=== PATIENT | female | born 1980 | race American Indian/Alaskan Native ===

== ENCOUNTER 2017-05-25 15:05 | Emergency (ER) | payer BC ==
[2017-05-25 15:21] VITALS: BP 126/69
--- NOTE | 2017-05-25 19:29 | XRay Report ---
FINAL REPORT PROCEDURE: XR KNEE 3V RT TECHNIQUE: RIGHT knee radiographs, AP, lateral and oblique views. CPT 99986 HISTORY: right knee xray COMPARISON: No prior studies are available for comparison. FINDINGS: Fracture (s) and/or Dislocation(s): None . Alignment: Normal . Joint space(s): Mild degree joint effusion is noted.. Soft tissues: Normal . Bone mineralization: Normal . Foreign bodies: None . IMPRESSION: No acute fracture. Mild degree joint effusion..
[2017-05-25] MEDS ORDERED: MOTRIN PO ONE (19:36)
[2017-05-25] MEDS ORDERED: TYLENOL #3 PO ONE (19:36)
--- NOTE | 2017-05-25 19:37 | Emergency Department Report ---
ED Lower Extremity HPI - General Chief Complaint: Extremity Injury, Lower Stated Complaint: R KNEE PAIN Time Seen by Provider: 05/25/17 19:22 Source: patient, RN notes reviewed Mode of arrival: Ambulatory Limitations: No Limitations - History of Present Illness Initial Comments: This is a 36-year-old female who is previously known to this provider, she reports that she is not . Patient reports that she has to do a lot of standing for work. She reports no chronic medical conditions. Patient presents to the ER with 1 day of nontraumatic right medial knee pain. The pain is sharp, does not radiate anywhere, increases with palpation, range of motion, standing, and decreases with rest. No headache, neck pain, chest pain, abdominal pain, shortness of breath or Pain. MD Complaint: knee injury -: Gradual Injury: Knee: Right Type of Injury: unknown Place: home Severity: moderate Improves With: rest Worsens With: weight bearing, movement, palpation Associated Symptoms: able to partially bear weight. denies: snap/pop sensation , swelling, numbness, tingling - Related Data Previous Rx's Medication Instructions Recorded Last Taken Type HYDROcodone/ACETAMINOPHEN [Lortab 1 each PO Q6H #10 tablet 12/05/13 Unknown Rx 5-325 mg Tablet] Mupirocin [Bactroban 2%] 1 applicatio TP TID #15 gram 12/05/13 Unknown Rx Sulfamethoxazole/Trimethoprim 1 each PO BID #20 tablet 12/05/13 Unknown Rx [Bactrim Ds] Ciprofloxacin HCl [Ciprofloxacin 500 mg PO BID #10 tablet 03/21/16 Unknown Rx TAB] Ibuprofen [Motrin] 800 mg PO Q8HR PRN #20 tablet 03/21/16 Unknown Rx Acetaminophen [Tylenol Arthritis] 650 mg PO Q6HR PRN #30 tablet.er 05/25/17 Unknown Rx Ibuprofen [Motrin] 600 mg PO Q8H PRN #30 tablet 05/25/17 Unknown Rx Allergies Allergy/AdvReac Type Severity Reaction Status Date / Time No Known Allergies Allergy Unverified 12/05/13 19:15 ED Review of Systems ROS: Stated complaint: R KNEE PAIN Other details as noted in HPI ED Past Medical Hx - Past Medical History Previous Medical History?: Yes Additional medical history: Vaginal dleivery x 2 - Surgical History Past Surgical History?: Yes Additional Surgical History: FIBROIDS REMOVED - Social History Smoking Status: Current Every Day Smoker Substance Use Type: Non Opiate Pain - Medications Home Medications: Home Medications Medication Instructions Recorded Confirmed Last Taken Type HYDROcodone/ACETAMINOPHEN [Lortab 1 each PO Q6H #10 tablet 12/05/13 Unknown Rx 5-325 mg Tablet] Mupirocin [Bactroban 2%] 1 applicatio TP TID #15 gram 12/05/13 Unknown Rx Sulfamethoxazole/Trimethoprim 1 each PO BID #20 tablet 12/05/13 Unknown Rx [Bactrim Ds] Ciprofloxacin HCl [Ciprofloxacin 500 mg PO BID #10 tablet 03/21/16 Unknown Rx TAB] Ibuprofen [Motrin] 800 mg PO Q8HR PRN #20 tablet 03/21/16 Unknown Rx Acetaminophen [Tylenol Arthritis] 650 mg PO Q6HR PRN #30 tablet.er 05/25/17 Unknown Rx Ibuprofen [Motrin] 600 mg PO Q8H PRN #30 tablet 05/25/17 Unknown Rx ED Physical Exam - General Limitations: Physical Limitation General appearance: alert, in no apparent distress - Head Head exam: Present: atraumatic, normocephalic - Eye Eye exam: Present: normal appearance, EOMI. Absent: nystagmus - ENT ENT exam: Present: normal exam, normal orophraynx, mucous membranes moist, normal external ear exam - Neck Neck exam: Present: normal inspection, full ROM - Respiratory Respiratory exam: Present: normal lung sounds bilaterally. Absent: respiratory distress - Cardiovascular Cardiovascular Exam: Present: regular rate, normal rhythm, normal heart sounds. Absent: systolic murmur, diastolic murmur, rubs, gallop - GI/Abdominal GI/Abdominal exam: Present: soft, normal bowel sounds. Absent: distended, tenderness, guarding, rebound, rigid, pulsatile mass - Extremities Exam Extremities exam: Present: normal inspection, normal capillary refill, other (2 + pulses noted in the bilateral upper extremities. The compartments are soft. There is no redness, pus or streaking. The right medial joint line of the knee is tender. The medial aspect of the patella is tender. 5 out of 5 strength bilateral upper and lower extremities. Sensation intact to light touch in the bilateral upper and lower extremities. There is no pain with active or passive range of motion of the bilateral lower extremities with dorsi and/or plantar flexion.). Absent: pedal edema, joint swelling, calf tenderness - Back Exam Back exam: Present: normal inspection, full ROM. Absent: paraspinal tenderness , vertebral tenderness - Neurological Exam Neurological exam: Present: alert, oriented X3, CN II-XII intact, other ( Extraocular movements intact. Tongue midline. No facial droop. Facial sensation intact to light touch in the V1, V2, V3 distribution bilaterally. 5 and 5 strength in 4 extremities.. Sensation is intact to light touch in 4 extremities.). Absent: motor sensory deficit - Psychiatric Psychiatric exam: Present: normal affect, normal mood - Skin Skin exam: Present: warm, dry, intact, normal color. Absent: rash ED Course Vital Signs 05/25/17 15:17 Temperature 97.8 F Pulse Rate 90 Respiratory 16 Rate Blood Pressure 126/69 O2 Sat by Pulse 98 Oximetry ED Lower Extremity MDM - Lab Data Vital Signs 05/25/17 15:17 Temperature 97.8 F Pulse Rate 90 Respiratory 16 Rate Blood Pressure 126/69 O2 Sat by Pulse 98 Oximetry - Radiology Data Radiology results: report reviewed, image reviewed X-ray of the knee, interpreted by myself and radiology: No acute disease - Medical Decision Making Differential diagnosis, including when not limited to: Sprain, strain, fracture , dislocation, patella femoral syndrome Assessment and plan: 36-year-old female with reported spontaneous nontraumatic right medial knee pain. History, physical examination do not suggest diagnosis of fracture, dislocation , cellulitis, myositis, septic joint, or DVT. Most likely has myofascial strain , or patellofemoral syndrome. Weightbearing as tolerated, bulky Herrmann dressing ordered, patient will be referred to outpatient orthopedic/physical therapy. Return precautions are reviewed. Critical care attestation.: If time is entered above; I have spent that time in minutes in the direct care of this critically ill patient, excluding procedure time. ED Disposition Clinical Impression: Right knee pain Disposition: DC-01 TO HOME OR SELFCARE Is pt being admited?: No Does the pt Need Aspirin: No Condition: Stable Instructions: Patellofemoral Pain Syndrome (ED), Knee Exercises (GEN) Additional Instructions: Breast, and avoid heavy lifting. Avoid strenuous physical activities. Take pain medication as needed/directed. Follow up within the next week with either orthopedics or primary care to initiate outpatient physical therapy. Symptoms will likely take weeks to months to improve. Return to the ER right away with new pain, worsened pain, migration of pain, fevers, chills, lethargy, irritability, projectile vomiting, change in mental status, confusion, inability to tolerate liquid feeds, redness, pus, streaking, discharge from the affected joint. Referrals: MARCK ARREOLA MD [Primary Care Provider] - 3-5 Days NADIA BERNABE MD [Staff Physician] - 3-5 Days Forms: Work/School Release Form(ED)
== END 2017-05-25 20:15 | disposition home or self-care (01) ==
LOC: ED 15:05
DX: M25.561 Pain in right knee (principal); F17.200 Nicotine dependence, unspecified, uncomplicated; X58.XXXA Exposure to other specified factors, initial encounter; Y93.89 Activity, other specified; Y92.89 Other specified places as the place of occurrence of the external cause; Y99.8 Other external cause status

== ENCOUNTER 2018-07-10 13:59 | Emergency (ER) | payer BC, OTHER ==
[2018-07-10 15:25] VITALS: BP 132/66
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
[2018-07-10] MEDS ORDERED: IBUPROFEN PO ONE (17:24)
[2018-07-10] MEDS ORDERED: ULTRAM PO ONE (17:24)
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
--- NOTE | 2018-07-10 17:42 | XRay Report ---
PROCEDURE: Cervical spine. TECHNIQUE: 4 views. HISTORY: Posterior neck pain. COMPARISONS: None. FINDINGS: The cervical vertebrae are normal height and alignment. There are no fractures. There is no subluxati on. There is moderate disc space narrowing at C4-5. The prevertebral soft tissues have normal thickne ss. IMPRESSION: Degenerative disc disease at C4-5. This document is electronically signed by Titi Becerra MD., July 10 2018 05:40:11 PM ET
--- NOTE | 2018-07-10 17:44 | XRay Report ---
PROCEDURE: Lumbar spine. TECHNIQUE: AP and lateral views. HISTORY: Low back pain. COMPARISONS: None. FINDINGS: The lumbar vertebrae have normal height and alignment. There are no fractures. There is no spondyloli sthesis. L5 is a transitional type vertebrae with partial fusion to the sacrum. The disc spaces are w ell-maintained. The sacrum and sacroiliac joints appear normal. IMPRESSION: No significant abnormality. This document is electronically signed by Titi Becerra MD., July 10 2018 05:42:26 PM ET
== END 2018-07-10 18:23 | disposition home or self-care (01) ==
LOC: ED 13:59
DX: S39.012A Strain of muscle, fascia and tendon of lower back, initial encounter (principal); R51 Headache; M25.511 Pain in right shoulder; M54.2 Cervicalgia; V49.49XA Driver injured in collision with other motor vehicles in traffic accident, initial encounter; Y93.89 Activity, other specified; Y92.410 Unspecified street and highway as the place of occurrence of the external cause; Y99.8 Other external cause status
CPT/HCPCS: 72040; 72100

== ENCOUNTER 2018-08-18 19:39 | Emergency (ER) | payer OTHER ==
--- NOTE | 2018-08-18 20:00 | Emergency Department Report ---
Chief Complaint: Sore Throat Stated Complaint: Sorethroat - HPI History of Present Illness: Here with a list of complaints sore throat chest pain feet swelling pmh obese psh fibroids rx none no cig/etoh/drugs lmp 2 w ago mom and dad a/w mse completed MSE screening note: Focused history and physical exam performed. Due to findings the following was ordered: ED Disposition for MSE Condition: Stable
[2018-08-18 20:33] LABS: Hematocrit 34.8 % (30.3-42.9); Hemoglobin 11.9 gm/dl (10.1-14.3); Mean Corpuscular HGB Conc 34 % (30-34); Mean Corpuscular Volume 80 fl (79-97); Platelet Count 298 K/mm3 (140-440); Red Blood Count 4.35 M/mm3 (3.65-5.03)
[2018-08-18 20:53] LABS: Alanine Aminotransferase 12 units/L (7-56); Albumin 3.3 g/dL (3.9-5); BUN/Creatinine Ratio 14; Blood Urea Nitrogen 13 mg/dL (7-17); Calcium 8.9 mg/dL (8.4-10.2); Hemolysis Index 12
[2018-08-18 21:50] LABS: HCG Qualitative,Urine Negative (Negative)
[2018-08-18 21:57] LABS: Bilirubin,Urine NEG (Negative); Blood,Urine SM (Negative); Color,Urine Yellow (Yellow); Mucus,Urine FEW /HPF; Protein,Urine <15 mg/dL mg/dL (Negative); Urobilinogen,Urine < 2.0 mg/dL (<2.0); WBC,Urine < 1.0 /HPF (0.0-6.0)
[2018-08-18 22:09] VITALS: BP 121/62
--- NOTE | 2018-08-18 22:24 | Emergency Department Report ---
ED ENT HPI - General Chief complaint: Sore Throat Stated complaint: Sorethroat Time Seen by Provider: 08/18/18 20:07 Source: patient Mode of arrival: Ambulatory Limitations: No Limitations - History of Present Illness Initial comments: 38-year-old -Turkish female comes in for runny nose, nasal congestion, sneezing, cough worse at night and headache. This is been going on for 2-3 days. Patient reports burning in her nasal passage. Headache dizziness off and on. -: days(s) (2-3) - Related Data Previous Rx's Medication Instructions Recorded Last Taken Type HYDROcodone/ACETAMINOPHEN [Lortab 1 each PO Q6H #10 tablet 12/05/13 Unknown Rx 5-325 mg Tablet] Mupirocin [Bactroban 2%] 1 applicatio TP TID #15 gram 12/05/13 Unknown Rx Sulfamethoxazole/Trimethoprim 1 each PO BID #20 tablet 12/05/13 Unknown Rx [Bactrim Ds] Ciprofloxacin HCl [Ciprofloxacin 500 mg PO BID #10 tablet 03/21/16 Unknown Rx TAB] Ibuprofen [Motrin] 800 mg PO Q8HR PRN #20 tablet 03/21/16 Unknown Rx Acetaminophen [Tylenol Arthritis] 650 mg PO Q6HR PRN #30 tablet.er 05/25/17 Unknown Rx Ibuprofen [Motrin] 600 mg PO Q8H PRN #30 tablet 05/25/17 Unknown Rx Ibuprofen [Motrin] 800 mg PO Q8HR PRN #30 tablet 07/10/18 Unknown Rx traMADol [Ultram 50 MG tab] 50 mg PO Q6HR PRN #20 tablet 07/10/18 Unknown Rx diphenhydrAMINE [Benadryl CAP] 25 mg PO Q6HR PRN #20 capsule 07/27/18 Unknown Rx predniSONE [Deltasone] 20 mg PO DAILY #5 tablet 07/27/18 Unknown Rx Cetirizine HCl [ZyrTEC] 10 mg PO DAILY #30 capsule 08/18/18 Unknown Rx Fluticasone Furoate [Flonase 1 spray NS QDAY #1 spray.susp 08/18/18 Unknown Rx Sensimist] Naproxen [Naprosyn] 500 mg PO BID #30 tablet 08/18/18 Unknown Rx Allergies Allergy/AdvReac Type Severity Reaction Status Date / Time No Known Allergies Allergy Verified 07/10/18 15:22 ED Dental HPI - General Chief complaint: Sore Throat Stated complaint: Sorethroat Time Seen by Provider: 08/18/18 20:07 Source: patient Mode of arrival: Ambulatory Limitations: No Limitations - Related Data Previous Rx's Medication Instructions Recorded Last Taken Type HYDROcodone/ACETAMINOPHEN [Lortab 1 each PO Q6H #10 tablet 12/05/13 Unknown Rx 5-325 mg Tablet] Mupirocin [Bactroban 2%] 1 applicatio TP TID #15 gram 12/05/13 Unknown Rx Sulfamethoxazole/Trimethoprim 1 each PO BID #20 tablet 12/05/13 Unknown Rx [Bactrim Ds] Ciprofloxacin HCl [Ciprofloxacin 500 mg PO BID #10 tablet 03/21/16 Unknown Rx TAB] Ibuprofen [Motrin] 800 mg PO Q8HR PRN #20 tablet 03/21/16 Unknown Rx Acetaminophen [Tylenol Arthritis] 650 mg PO Q6HR PRN #30 tablet.er 05/25/17 Unknown Rx Ibuprofen [Motrin] 600 mg PO Q8H PRN #30 tablet 05/25/17 Unknown Rx Ibuprofen [Motrin] 800 mg PO Q8HR PRN #30 tablet 07/10/18 Unknown Rx traMADol [Ultram 50 MG tab] 50 mg PO Q6HR PRN #20 tablet 07/10/18 Unknown Rx diphenhydrAMINE [Benadryl CAP] 25 mg PO Q6HR PRN #20 capsule 07/27/18 Unknown Rx predniSONE [Deltasone] 20 mg PO DAILY #5 tablet 07/27/18 Unknown Rx Cetirizine HCl [ZyrTEC] 10 mg PO DAILY #30 capsule 08/18/18 Unknown Rx Fluticasone Furoate [Flonase 1 spray NS QDAY #1 spray.susp 08/18/18 Unknown Rx Sensimist] Naproxen [Naprosyn] 500 mg PO BID #30 tablet 08/18/18 Unknown Rx Allergies Allergy/AdvReac Type Severity Reaction Status Date / Time No Known Allergies Allergy Verified 07/10/18 15:22 ED Review of Systems ROS: Stated complaint: Sorethroat Other details as noted in HPI Constitutional: denies: chills, fever ENT: congestion, other (rhinorrhea, sneezing) Respiratory: cough. denies: shortness of breath, SOB with exertion Cardiovascular: denies: chest pain Gastrointestinal: denies: abdominal pain, nausea, diarrhea ED Past Medical Hx - Past Medical History Previous Medical History?: No Additional medical history: Vaginal dleivery x 2 - Surgical History Past Surgical History?: Yes Additional Surgical History: FIBROIDS REMOVED. laposcopic - Social History Smoking Status: Never Smoker Substance Use Type: None - Medications Home Medications: Home Medications Medication Instructions Recorded Confirmed Last Taken Type HYDROcodone/ACETAMINOPHEN [Lortab 1 each PO Q6H #10 tablet 12/05/13 Unknown Rx 5-325 mg Tablet] Mupirocin [Bactroban 2%] 1 applicatio TP TID #15 gram 12/05/13 Unknown Rx Sulfamethoxazole/Trimethoprim 1 each PO BID #20 tablet 12/05/13 Unknown Rx [Bactrim Ds] Ciprofloxacin HCl [Ciprofloxacin 500 mg PO BID #10 tablet 03/21/16 Unknown Rx TAB] Ibuprofen [Motrin] 800 mg PO Q8HR PRN #20 tablet 03/21/16 Unknown Rx Acetaminophen [Tylenol Arthritis] 650 mg PO Q6HR PRN #30 tablet.er 05/25/17 Unknown Rx Ibuprofen [Motrin] 600 mg PO Q8H PRN #30 tablet 05/25/17 Unknown Rx Ibuprofen [Motrin] 800 mg PO Q8HR PRN #30 tablet 07/10/18 Unknown Rx traMADol [Ultram 50 MG tab] 50 mg PO Q6HR PRN #20 tablet 07/10/18 Unknown Rx diphenhydrAMINE [Benadryl CAP] 25 mg PO Q6HR PRN #20 capsule 07/27/18 Unknown Rx predniSONE [Deltasone] 20 mg PO DAILY #5 tablet 07/27/18 Unknown Rx Cetirizine HCl [ZyrTEC] 10 mg PO DAILY #30 capsule 08/18/18 Unknown Rx Fluticasone Furoate [Flonase 1 spray NS QDAY #1 spray.susp 08/18/18 Unknown Rx Sensimist] Naproxen [Naprosyn] 500 mg PO BID #30 tablet 08/18/18 Unknown Rx ED Physical Exam - General Limitations: No Limitations General appearance: alert, in no apparent distress, obese, other (patient is drinking and eating ice on examination) - Head Head exam: Present: atraumatic, normocephalic - Eye Eye exam: Present: normal appearance - ENT ENT exam: Present: mucous membranes moist - Expanded ENT Exam Expanded Teeth exam: Present: normal inspection. Absent: gingival enlargement Throat exam: Positive: normal inspection - Neck Neck exam: Present: normal inspection, full ROM. Absent: tenderness, lymphadenopathy - Respiratory Respiratory exam: Present: normal lung sounds bilaterally. Absent: respiratory distress - Cardiovascular Cardiovascular Exam: Present: regular rate, normal rhythm. Absent: systolic murmur, diastolic murmur, rubs, gallop - GI/Abdominal GI/Abdominal exam: Present: soft, normal bowel sounds - Extremities Exam Extremities exam: Present: normal inspection - Back Exam Back exam: Present: full ROM - Neurological Exam Neurological exam: Present: alert, oriented X3, normal gait - Psychiatric Psychiatric exam: Present: normal affect, normal mood - Skin Skin exam: Present: warm, dry, intact, normal color. Absent: rash ED Course Vital Signs 08/18/18 08/18/18 19:42 22:05 Temperature 97.4 F L Pulse Rate 104 H 86 Respiratory 16 Rate Blood Pressure 133/61 121/62 [Right] O2 Sat by Pulse 100 97 Oximetry ED Medical Decision Making - Lab Data Result diagrams: 08/18/18 20:15 08/18/18 20:15 Laboratory Results - last 72 hr 08/18/18 08/18/18 08/18/18 20:15 20:15 20:27 WBC 10.5 RBC 4.35 Hgb 11.9 Hct 34.8 MCV 80 MCH 27 L MCHC 34 RDW 17.0 H Plt Count 298 Sodium 141 Potassium 4.1 Chloride 103.9 Carbon Dioxide 27 Anion Gap 14 BUN 13 Creatinine 0.9 Estimated GFR > 60 BUN/Creatinine Ratio 14 Glucose 114 H Calcium 8.9 Total Bilirubin 0.20 AST 14 ALT 12 Alkaline Phosphatase 59 Troponin T < 0.010 Total Protein 5.8 L Albumin 3.3 L Albumin/Globulin Ratio 1.3 Urine Color Yellow Urine Turbidity Clear Urine pH 6.0 Ur Specific [place] 1.010 Urine Protein <15 mg/dl Urine Glucose (UA) Neg Urine Ketones Neg Urine Blood Sm Urine Nitrite Neg Ur Reducing Substances Not Reportable Urine Bilirubin Neg Urine Ictotest Not Reportable Urine Urobilinogen < 2.0 Ur Leukocyte Esterase Neg Urine WBC (Auto) < 1.0 Urine RBC (Auto) 1.0 U Epithel Cells (Auto) 1.0 Urine Mucus Few Urine HCG, Qual Negative - Medical Decision Making Patient has been evaluated by this provider in fast track. Patient appears to have allergic rhinitis. I will place patient on cetirizine, Flonase, naproxen to follow up with her primary care provider if her symptoms persist or gets worse. Critical care attestation.: If time is entered above; I have spent that time in minutes in the direct care of this critically ill patient, excluding procedure time. ED Disposition Clinical Impression: Allergic rhinitis Qualifiers: Allergic rhinitis trigger: pollen Allergic rhinitis seasonality: seasonal Qualified Code(s): J30.1 - Allergic rhinitis due to pollen Disposition: DC-01 TO HOME OR SELFCARE Is pt being admited?: No Does the pt Need Aspirin: No Condition: Stable Instructions: Allergic Rhinitis (ED) Additional Instructions: Take medications as prescribed. Follow-up with primary care provider if his symptoms persist or gets worse. Prescriptions: Fluticasone Furoate [Flonase Sensimist] 1 spray NS QDAY #1 spray.susp Naproxen [Naprosyn] 500 mg PO BID #30 tablet Cetirizine HCl [ZyrTEC] 10 mg PO DAILY #30 capsule Referrals: PRIMARY CARE, [Primary Care Provider] - 3-5 Days Forms: Work/School Release Form(ED), Accompanied Note
--- NOTE | 2018-08-19 00:12 | XRay Report ---
PROCEDURE: XR CHEST ROUTINE 2V TECHNIQUE: PA and lateral views of the chest were obtained. HISTORY: cough COMPARISONS: None FINDINGS: Heart size upper normal. The pulmonary vasculature appears normal. The lungs are clear. No infiltrate s masses or effusions are seen. No acute bone abnormalities are identified. There is mild thoracolumb ar scoliosis convex to the left. IMPRESSION: No evidence of acute cardiac or pulmonary process.. This document is electronically signed by Tavo Duncan MD., August 19 2018 12:10:41 AM ET
== END 2018-08-18 22:30 | disposition home or self-care (01) ==
LOC: ED 19:39
DX: J30.1 Allergic rhinitis due to pollen (principal); Z79.899 Other long term (current) drug therapy
CPT/HCPCS: 36415; 71046; 80053; 81001; 81025; 84484; 85027; 93005; 93010

== ENCOUNTER 2018-11-09 18:43 | Emergency (ER) | payer OTHER ==
--- NOTE | 2018-11-09 19:02 | Event Note ---
ED Screening Note ED Screening Note: pt presents with BL hand and feet edema for 3 weeks no fall, injury, or trauma no primary care doctor LNMP: two days ago PMHx carpal tunnel no allergies to meds This initial assessment/diagnostic orders/clinical plan/treatment(s) is/are subject to change based on patients health status, clinical progression and re- assessment by fellow clinical providers in the ED. Further treatment and workup at subsequent clinical providers discretion. Patient/guardian urged not to elope from the ED as their condition may be serious if not clinically assessed and managed. Initial orders include: labs
[2018-11-09 19:47] LABS: Basophils # (Auto) 0.1 K/mm3 (0.0-0.1); Basophils % (Auto) 0.6 % (0.0-1.8); Eosinophils # (Auto) 0.2 K/mm3 (0.0-0.4); Eosinophils % (Auto) 2.6 % (0.0-4.3); Hematocrit 34.6 % (30.3-42.9); Hemoglobin 11.6 gm/dl (10.1-14.3); Lymphocytes # (Auto) 1.7 K/mm3 (1.2-5.4); Lymphocytes % (Auto) 18.5 % (13.4-35.0); Mean Corpuscular HGB Conc 34 % (30-34); Mean Corpuscular Volume 83 fl (79-97); Monocytes # (Auto) 0.7 K/mm3 (0.0-0.8); Monocytes % (Auto) 7.7 % (0.0-7.3); Platelet Count 301 K/mm3 (140-440); Red Blood Count 4.18 M/mm3 (3.65-5.03); Red Cell Distribution Width 15.8 % (13.2-15.2)
[2018-11-09 20:08] LABS: Alanine Aminotransferase 10 units/L (7-56); Albumin 3.2 g/dL (3.9-5); BUN/Creatinine Ratio 8; Blood Urea Nitrogen 9 mg/dL (7-17); Calcium 8.5 mg/dL (8.4-10.2); Hemolysis Index 13
[2018-11-09] MEDS ORDERED: DECADRON IM ONE ×2 (20:16→20:19)
--- NOTE | 2018-11-09 20:17 | Emergency Department Report ---
ED Extremity Problem HPI - General Chief complaint: Extremity Problem,Nontraumatic Stated complaint: HANDS/FEET SWELLING Time Seen by Provider: 11/09/18 19:01 Source: patient Mode of arrival: Ambulatory Limitations: No Limitations - History of Present Illness Initial comments: 38-year-old -Danish female complaining of hand swelling, pain, lower extremity swelling and pain. Stated history of carpal tunnel, states history of rheumatoid arthritis. No fever, chills or night sweats. MD Complaint: extremity pain, extremity swelling - Related Data Previous Rx's Medication Instructions Recorded Last Taken Type HYDROcodone/ACETAMINOPHEN [Lortab 1 each PO Q6H #10 tablet 12/05/13 Unknown Rx 5-325 mg Tablet] Mupirocin [Bactroban 2%] 1 applicatio TP TID #15 gram 12/05/13 Unknown Rx Sulfamethoxazole/Trimethoprim 1 each PO BID #20 tablet 12/05/13 Unknown Rx [Bactrim Ds] Ciprofloxacin HCl [Ciprofloxacin 500 mg PO BID #10 tablet 03/21/16 Unknown Rx TAB] Ibuprofen [Motrin] 800 mg PO Q8HR PRN #20 tablet 03/21/16 Unknown Rx Acetaminophen [Tylenol Arthritis] 650 mg PO Q6HR PRN #30 tablet.er 05/25/17 Unknown Rx Ibuprofen [Motrin] 600 mg PO Q8H PRN #30 tablet 05/25/17 Unknown Rx Ibuprofen [Motrin] 800 mg PO Q8HR PRN #30 tablet 07/10/18 Unknown Rx traMADol [Ultram 50 MG tab] 50 mg PO Q6HR PRN #20 tablet 07/10/18 Unknown Rx diphenhydrAMINE [Benadryl CAP] 25 mg PO Q6HR PRN #20 capsule 07/27/18 Unknown Rx predniSONE [Deltasone] 20 mg PO DAILY #5 tablet 07/27/18 Unknown Rx Cetirizine HCl [ZyrTEC 10mg cap] 10 mg PO DAILY #30 capsule 08/18/18 Unknown Rx Fluticasone Furoate [Flonase 1 spray NS QDAY #1 spray.susp 08/18/18 Unknown Rx Sensimist] Naproxen [Naprosyn] 500 mg PO BID #30 tablet 08/18/18 Unknown Rx Allergies Allergy/AdvReac Type Severity Reaction Status Date / Time No Known Allergies Allergy Verified 07/10/18 15:22 ED Review of Systems ROS: Stated complaint: HANDS/FEET SWELLING Other details as noted in HPI Comment: All other systems reviewed and negative Cardiovascular: denies: chest pain, palpitations Endocrine: denies: flushing Gastrointestinal: denies: abdominal pain, nausea, vomiting Musculoskeletal: joint swelling, arthralgia ED Past Medical Hx - Past Medical History Previous Medical History?: Yes Additional medical history: Vaginal dleivery x 2. carpel tunnel - Surgical History Past Surgical History?: Yes Additional Surgical History: FIBROIDS REMOVED. laposcopic - Social History Smoking Status: Never Smoker Substance Use Type: None - Medications Home Medications: Home Medications Medication Instructions Recorded Confirmed Last Taken Type HYDROcodone/ACETAMINOPHEN [Lortab 1 each PO Q6H #10 tablet 12/05/13 Unknown Rx 5-325 mg Tablet] Mupirocin [Bactroban 2%] 1 applicatio TP TID #15 gram 12/05/13 Unknown Rx Sulfamethoxazole/Trimethoprim 1 each PO BID #20 tablet 12/05/13 Unknown Rx [Bactrim Ds] Ciprofloxacin HCl [Ciprofloxacin 500 mg PO BID #10 tablet 03/21/16 Unknown Rx TAB] Ibuprofen [Motrin] 800 mg PO Q8HR PRN #20 tablet 03/21/16 Unknown Rx Acetaminophen [Tylenol Arthritis] 650 mg PO Q6HR PRN #30 tablet.er 05/25/17 Unknown Rx Ibuprofen [Motrin] 600 mg PO Q8H PRN #30 tablet 05/25/17 Unknown Rx Ibuprofen [Motrin] 800 mg PO Q8HR PRN #30 tablet 07/10/18 Unknown Rx traMADol [Ultram 50 MG tab] 50 mg PO Q6HR PRN #20 tablet 07/10/18 Unknown Rx diphenhydrAMINE [Benadryl CAP] 25 mg PO Q6HR PRN #20 capsule 07/27/18 Unknown Rx predniSONE [Deltasone] 20 mg PO DAILY #5 tablet 07/27/18 Unknown Rx Cetirizine HCl [ZyrTEC 10mg cap] 10 mg PO DAILY #30 capsule 08/18/18 Unknown Rx Fluticasone Furoate [Flonase 1 spray NS QDAY #1 spray.susp 08/18/18 Unknown Rx Sensimist] Naproxen [Naprosyn] 500 mg PO BID #30 tablet 08/18/18 Unknown Rx ED Physical Exam - General Limitations: No Limitations General appearance: alert, in no apparent distress - Head Head exam: Present: atraumatic, normocephalic - Eye Eye exam: Present: normal appearance, PERRL, EOMI Pupils: Present: normal accommodation - ENT ENT exam: Present: normal exam, normal orophraynx - Neck Neck exam: Present: normal inspection - Respiratory Respiratory exam: Present: normal lung sounds bilaterally - Cardiovascular Cardiovascular Exam: Present: regular rate, normal rhythm - GI/Abdominal GI/Abdominal exam: Present: soft - Extremities Exam Extremities exam: Present: tenderness, joint swelling - Back Exam Back exam: Present: normal inspection - Neurological Exam Neurological exam: Present: alert, oriented X3 - Psychiatric Psychiatric exam: Present: normal affect - Skin Skin exam: Present: warm ED Course Vital Signs 11/09/18 11/09/18 19:01 19:46 Temperature 97.9 F Pulse Rate 98 H Respiratory 18 18 Rate Blood Pressure 133/62 O2 Sat by Pulse 96 Oximetry ED Medical Decision Making - Lab Data Result diagrams: 11/09/18 19:35 11/09/18 19:35 - Medical Decision Making Patient received Decadron 8 mg IM in ED, for her rheumatoid arthritis history, possible flareup, labs reviewed showed no severely abnormal issues, will DC home with follow-up with PCP. Critical care attestation.: If time is entered above; I have spent that time in minutes in the direct care of this critically ill patient, excluding procedure time. ED Disposition Clinical Impression: Mild peripheral edema, Rheumatoid arthritis flare Disposition: DC-01 TO HOME OR SELFCARE Is pt being admited?: No Does the pt Need Aspirin: No Condition: Stable Instructions: Leg Edema (ED) Referrals: MAGDA RIVERS MD [Primary Care Provider] - 3-5 Days
[2018-11-09 21:09] VITALS: BP 114/61
== END 2018-11-09 21:08 | disposition home or self-care (01) ==
LOC: ED 18:43
DX: M06.842 Other specified rheumatoid arthritis, left hand (principal); M06.841 Other specified rheumatoid arthritis, right hand; M06.862 Other specified rheumatoid arthritis, left knee; M06.861 Other specified rheumatoid arthritis, right knee; R60.0 Localized edema; Z79.899 Other long term (current) drug therapy
CPT/HCPCS: 36415; 80053; 83880; 85025; 96372; 99283; J1100